=== PATIENT | male | born 1970 | race Caucasian/White ===

== ENCOUNTER 2024-02-25 10:34 | Day surgery (SDC) | payer OTHER ==
[~2024-02-25] VITALS: Ht 177.8 cm; Wt 107.6 kg
[~2024-02-25 10:34] MED LIST: ALLO100T PO; AMLO1TAB25 PO; ATOR1TAB21 PO; METO1TAB7 PO; OXYC5SOL11 PO; VALS1TAB68 PO
[2024-02-25] MEDS ORDERED: fentaNYL 100 MCG/2 ML INJECTION As Ordered ONE (11:10)
[2024-02-25] MEDS ORDERED: LIDOCAINE 2% 100MG/5ML SDV (FOR ANES.) As Ordered ONE (11:10)
[2024-02-25] MEDS ORDERED: ONDANSETRON 4MG 2ML VIAL As Ordered ONE (11:10)
[2024-02-25] MEDS ORDERED: ROCURONIUM BROMIDE 50MG/5ML VIAL As Ordered ONE (11:10)
[2024-02-25] MEDS ORDERED: propofoL 200 MG/20 ML VIAL As Ordered ONE (11:10)
[2024-02-25] MEDS ORDERED: LR 1,000 ML IV SCH (11:10)
[2024-02-25] MEDS ORDERED: MIDAZOLAM INJ 2MG/2ML VIAL As Ordered ONE (11:11)
[2024-02-25] MEDS ORDERED: dexmedeTOMIDine (4MCG/ML)200MCG/50ML BTL (PRECEDEX) As Ordered ONE (12:12)
[2024-02-25] MEDS ORDERED: METOCLOPRAMIDE INJ 10MG/2ML VIAL As Ordered ONE (12:53)
[2024-02-25] MEDS ORDERED: PHENYLephrine 500MCG 5ML (100MCG/ML) SYRINGE As Ordered ONE (13:11)
[2024-02-25] MEDS: LIDOCAINE W/EPINEPHRINE 1% 20ML VIAL As Ordered ONE (13:15)
[2024-02-25] MEDS ORDERED: SUGAMMADEX SODIUM 500 MG/5 ML VIAL (BRIDION) As Ordered ONE (13:17)
[2024-02-25] MEDS ORDERED: ACETAMINOPHEN 1000MG 100ML IV BAG As Ordered ONE (13:30)
[2024-02-25] MEDS ORDERED: fentaNYL 100 MCG/2 ML INJECTION IV PRN (13:50)
[2024-02-25] MEDS: ONDANSETRON 4MG 2ML VIAL IV PRN (14:35)
[2024-02-25] MEDS: oxyCODONE 5MG TAB PO PRN (14:35)
[2024-02-25 14:47] VITALS: TEMP 97.4; O2SAT 94
[2024-02-25 15:00] VITALS: BP 158/95
== END 2024-02-25 15:15 | disposition home or self-care (01) ==
LOC: M SDC 10:34
PROVIDERS: ATTEND Dentist Oral and Maxillofacial Surgery
DX: K02.9 Dental caries, unspecified (principal); I10 Essential (primary) hypertension; E78.5 Hyperlipidemia, unspecified; M10.9 Gout, unspecified; K21.9 Gastro-esophageal reflux disease without esophagitis; Z79.899 Other long term (current) drug therapy; Z91.040 Latex allergy status
CPT/HCPCS: 88300; D7210; D9223; J0131; J1100; J2250; J2371; J2405; J2765; J3010